=== PATIENT | male | born 1965 | race Caucasian/White ===

== ENCOUNTER 2018-08-27 17:46 | Emergency (ER) | payer MEDICARE, MEDICAID ==
[~2018-08-27] VITALS: Ht 188 cm; Wt 165.9 kg
[~2018-08-27 17:46] MED LIST: ATEN-169 PO; BUPR150T6 PO; CLOZ150T PO; MONT10TA21 PO; OLAN5TAB5 PO; OMEP-84 PO; RES15C PO; TRAZ-91 PO; [UNRECOGNIZED DRUG - REMARK]
[2018-08-27 18:47] LABS: BASOPHILS # (AUTO) 0.1 X10'3 (0-0.2); BASOPHILS % (AUTO) 1.4 % (0-1); EOSINOPHILS % (AUTO) 0.1 % (0-6); HEMOGLOBIN 16.1 g/dl (14.0-17.9); LYMPHOCYTES % (AUTO) 38.4 % (21-51); MEAN CORPUSCULAR HEMOGLOBIN 32.1 PG (27.0-31.0); MEAN CORPUSCULAR VOLUME 91.8 FL (78-98); MEAN PLATELET VOLUME 6.9 FL (7.4-10.4); MONOCYTES # (AUTO) 0.6 X10'3 (0-0.9); MONOCYTES % (AUTO) 12.1 % (2-12); NEUTROPHILS # (AUTO) 2.4 X10'3 (1.8-7.7); PLATELET COUNT 205 X10'3 (140-440); RED BLOOD COUNT 5.01 X10'6 (4.70-6.10); RED CELL DISTRIBUTION WIDTH 13.3 % (11.5-14.5); WHITE BLOOD COUNT 5.1 X10'3 (4.5-11.0)
[2018-08-27 18:55] LABS: ALANINE AMINOTRANSFERASE 27 U/L (12-78); ALBUMIN 4.2 G/DL (3.4-5.0); ALKALINE PHOSPHATASE 97 IU/L (46-116); ANION GAP 11 (8-16); ASPARTATE AMINO TRANSFERASE 22 U/L (10-37); BILIRUBIN,TOTAL 0.5 MG/DL (0.1-1.0); BLOOD UREA NITROGEN 16 MG/DL (7-18); BUN/CREATININE RATIO 16.5 (5.4-32.0); CALCIUM 9.6 MG/DL (8.5-10.1); CHLORIDE 103 MMOL/L (99-107); CREATININE 0.97 MG/DL (0.60-1.10); GLUCOSE 108 MG/DL (70-104); SODIUM 141 MMOL/L (135-145); TOTAL CARBON DIOXIDE 27.3 MMOL/L (24-32); TOTAL PROTEIN 8.4 G/DL (6.4-8.2); eGFR 81 ML/MIN
[2018-08-27 18:57] LABS: POTASSIUM 3.6 MMOL/L (3.5-5.1)
[2018-08-27 19:13] LABS: ETHANOL < 0.010 GM/DL (0.0-0.010)
[2018-08-27 20:10] LABS: CLARITY,URINE CLEAR (Clear); COLOR,URINE STRAW (Yellow); GLUCOSE, URINE NEGATIVE (Neg); KETONES,URINE NEGATIVE (Neg); LEUKOCYTE ESTERASE ,URINE NEGATIVE (Neg); NITRITES, URINE NEGATIVE (Neg); OCCULT BLOOD,URINE NEGATIVE (Neg); PROTEIN,URINE NEGATIVE (Neg); UROBILINOGEN,URINE 0.2 E.U/dL (0.2-1.0)
[2018-08-27 20:14] LABS: UA COLLECTION TYPE CLN CATCH MIDSTREAM
[2018-08-27 20:21] LABS: URINE AMPHETAMINE SCREEN NEGATIVE (Neg); URINE BARBITUATE SCREEN NEGATIVE (Neg); URINE BENZODIAZEPINES SCREEN NEGATIVE (Neg); URINE CANNABINOID SCREEN NEGATIVE (Neg); URINE COCAINE SCREEN NEGATIVE (Neg); URINE METHADONE SCREEN NEGATIVE (Neg); URINE OPIATE SCREEN NEGATIVE (Neg); URINE PHENCYCLIDINE SCREEN NEGATIVE (Neg)
[2018-08-27] MEDS ORDERED: BUPR150T14 PO (23:18)
[2018-08-27] MEDS ORDERED: POTA-82 PO (23:18)
[2018-08-27] MEDS ORDERED: HYDR-4353 PO (23:18)
[2018-08-27] MEDS ORDERED: GABA-532 PO (23:18)
[2018-08-27] MEDS ORDERED: CARV6.253 PO (23:18)
[2018-08-27] MEDS ORDERED: FURO-150 PO (23:18)
[2018-08-27] MEDS ORDERED: VENL150C2 PO (23:18)
[2018-08-27] MEDS ORDERED: CLON0.1T PO (23:18)
[2018-08-27] MEDS ORDERED: GEMF600T89 PO (23:18)
[2018-08-27] MEDS ORDERED: SUMA50TA PO (23:18)
[2018-08-27] MEDS ORDERED: traZODone 50mg tablet PO PRN (23:40)
[2018-08-27] MEDS ORDERED: SUMAtriptan 25 MG tablet PO PRN (23:40)
--- NOTE | 2018-08-27 23:53 | NUR ---
Initiated Tele Psyc consult
[2018-08-28] MEDS ORDERED: LORazepam 1 MG tablet PO ONE
--- NOTE | 2018-08-28 | NUR ---
PATIENT WAS BROUGHT IN BY HIS MOTHER, PATIENT STATES THAT HE HAS INCREASED ANGER AND WAS HAVING THOUGHTS OF CUTTING THE VEINS IN HIS ANKLES. PATIENT CURRENTLY DOES NOT WANT TO HARM HIMSELF BUT FEELS LIKE HIS LIFE IS SPINNING OUT OF CONTROL. HE LIVES ON HIS OWN AND IS DISABLED. PATIENT HAS BEEN PLEASENT AND COOPERATIVE, HE HAS BEEN PACING BETWEEN HIS ROOM AND THE SINK. PATIENT WAS EDUCATED TO PLEASE STAY IN HIS ROOM UNLESS HE NEEDS TO USE RESTROOM, PATIENT VERBALIZED UNDERSTANDING.
[2018-08-28] MEDS: cloNIDine 0.1 mg tablet PO SCH ×2 (00:17→20:37)
--- NOTE | 2018-08-28 00:42 | NUR ---
DR. FERNÁNDEZ CALLED FOR INFORMATION ON PATIENT PRIOR TO TELE PYSC.
--- NOTE | 2018-08-28 01:28 | NUR ---
TELEPSYC REPORT SHOWN TO MD FAUSTINO AWARE OF RECOMMENDATIONS. [facility] WILL FOLLOW UP WITH PATIENT TOMORROW
[2018-08-28] MEDS ORDERED: SUMATRIPTAN SUCCINATE PO PRN (02:40)
[2018-08-28] MEDS: gemfibrozil 600mg tablet PO SCH ×2 (07:36→20:37)
[2018-08-28] MEDS: OLANZapine 5mg rapidly disint. tablet PO SCH ×2 (07:37→20:37)
[2018-08-28] MEDS: montelukast 10mg tablet PO SCH (07:37)
[2018-08-28] MEDS: potassium Cl 20 mEq SR tablet PO SCH (07:37)
[2018-08-28] MEDS: pantoprazole 40mg Tablet.DR PO SCH (07:38)
[2018-08-28] MEDS: furosemide 20MG tablet PO SCH (07:38)
[2018-08-28] MEDS: venlafaxine XR 75mg capsule (Q24H) PO SCH (07:38)
[2018-08-28] MEDS: carvedilol 6.25mg tablet PO SCH ×2 (07:38→20:37)
[2018-08-28] MEDS: CLOZAPINE 25 MG oral disintegrating tablet PO SCH ×2 (07:39→20:37)
[2018-08-28] MEDS: gabapentin 300mg capsule PO SCH ×3 (07:45→20:37)
[2018-08-28] MEDS ORDERED: HYDROcodone/acetaminophen 10/325mg tab PO SCH (08:00)
[2018-08-28] MEDS ORDERED: non-formulary drug (Venlafaxine HCl (Effexor Xr) 2 CAP) PO SCH (08:00)
[2018-08-28] MEDS ORDERED: buproprion 150mg XL (24-hour) tablet PO SCH (08:00)
[2018-08-28] MEDS ORDERED: carvedilol 6.25mg tablet PO SCH (08:00)
[2018-08-28] MEDS ORDERED: non-formulary drug (Omeprazole* (Prilosec*) 20 MG) PO SCH (08:00)
[2018-08-28] MEDS ORDERED: gabapentin 300mg capsule PO SCH (08:00)
[2018-08-28] MEDS ORDERED: gemfibrozil 600mg tablet PO SCH (08:00)
[2018-08-28] MEDS ORDERED: CLOZAPINE 150 MG PO SCH (08:00)
[2018-08-28] MEDS ORDERED: OLANZapine 5mg rapidly disint. tablet PO SCH (08:00)
[2018-08-28] MEDS ORDERED: furosemide 20MG tablet PO SCH (08:00)
[2018-08-28] MEDS ORDERED: BUPROPION 150 MG PO (10:11)
[2018-08-28] MEDS: buPROPion SR 100mg tab PO SCH ×2 (10:53→20:37)
--- NOTE | 2018-08-28 18:33 | NUR ---
Report rec'd, care assumed. Patient sitting up on side of bed eating dinner. Denies needs. Will monitor.
--- NOTE | 2018-08-28 19:22 | NUR ---
Finished eating dinner. Up to BRP without assistance. Gait steady. Denies needs, will continue to monitor.
--- NOTE | 2018-08-28 20:52 | NUR ---
Took medications without issues. Denies needs, will continue to monitor.
[2018-08-28] MEDS ORDERED: montelukast 10mg tablet PO SCH (21:00)
[2018-08-28] MEDS ORDERED: TRAZODONE HCL 200 MG PO SCH (21:00)
[2018-08-28] MEDS ORDERED: cloNIDine 0.1 mg tablet PO SCH (21:00)
--- NOTE | 2018-08-28 21:58 | NUR ---
Resting in bed with eyes, appearing to sleep, will monitor.
--- NOTE | 2018-08-28 22:56 | NUR ---
In bed, eyes closed, resp even and unlabored, on C-PAP, appearing to sleep.
--- NOTE | 2018-08-28 23:57 | NUR ---
Resting in bed with eyes closed, appearing to sleep without new issues or concerns. Resp even and unlabored, continues on C-PAP. Will continue to monitor.
--- NOTE | 2018-08-29 01:19 | NUR ---
Resting in bed, continues to appear to sleep. No changes noted. No new concerns or issues noted.
--- NOTE | 2018-08-29 02:04 | NUR ---
Resting in bed, eyes closed, resp unlabored, appearing to sleep comfortably without new concerns or issues noted. Will continue to monitor.
--- NOTE | 2018-08-29 03:00 | NUR ---
Resting in bed, appearing to sleep.
--- NOTE | 2018-08-29 04:00 | NUR ---
Resting in bed, appearing to sleep.
--- NOTE | 2018-08-29 04:58 | NUR ---
Resting in bed, eyes closed, resp unlabored, appearing to sleep comfortably without new concerns or issues noted. Will continue to monitor.
[2018-08-29] MEDS: gemfibrozil 600mg tablet PO SCH ×2 (08:00→20:13)
[2018-08-29] MEDS: venlafaxine XR 75mg capsule (Q24H) PO SCH (08:27)
[2018-08-29] MEDS: buPROPion SR 100mg tab PO SCH ×2 (08:27→20:13)
[2018-08-29] MEDS: potassium Cl 20 mEq SR tablet PO SCH (08:28)
[2018-08-29] MEDS: furosemide 20MG tablet PO SCH (08:28)
[2018-08-29] MEDS: pantoprazole 40mg Tablet.DR PO SCH (08:28)
[2018-08-29] MEDS: montelukast 10mg tablet PO SCH (08:28)
[2018-08-29] MEDS: carvedilol 6.25mg tablet PO SCH ×2 (08:46→20:14)
[2018-08-29] MEDS: gabapentin 300mg capsule PO SCH ×3 (08:47→20:14)
[2018-08-29] MEDS: CLOZAPINE 25 MG oral disintegrating tablet PO SCH ×2 (08:47→20:14)
[2018-08-29] MEDS: OLANZapine 5mg rapidly disint. tablet PO SCH ×2 (08:48→20:13)
--- NOTE | 2018-08-29 08:54 | NUR ---
PT ATE BREAKFAST. MEDS PASSED. ONE MED NOT AVAILABLE. PHARMACY NOTIFIED
--- NOTE | 2018-08-29 10:27 | NUR ---
PT STATES NO SUICAL THOUGHTS OR PLAN. SAYS EXPERIENCING DEPRESSION AND ANXIETY.
--- NOTE | 2018-08-29 11:40 | NUR ---
PT IS CURRENTLY SITTING AT BEDSIDE
[2018-08-29] MEDS: HYDROcodone/acetaminophen 10/325mg tab PO PRN (14:46)
--- NOTE | 2018-08-29 15:58 | NUR ---
PT IS UP AND TOILETING
--- NOTE | 2018-08-29 16:45 | NUR ---
PT IS LAYING IN BED AND TALKING ON THE PHONE. PT VOIDS ALOT
--- NOTE | 2018-08-29 18:09 | NUR ---
Gave report to Minal PASCUAL
--- NOTE | 2018-08-29 18:57 | NUR ---
PATIENT RESTING IN BED AT THIS TIME.
[2018-08-29] MEDS: cloNIDine 0.1 mg tablet PO SCH (20:14)
--- NOTE | 2018-08-29 20:15 | NUR ---
MEDICATIONS GIVEN AT THIS TIME.
--- NOTE | 2018-08-29 22:00 | NUR ---
PATIENT RESTING IN BED WITH A HOME CIPAP ON.
--- NOTE | 2018-08-30 00:30 | NUR ---
RESTING IN BED WITH EYES CLOSED.
--- NOTE | 2018-08-30 03:00 | NUR ---
NO BEHAVIOR PROBLEMS NOTED THIS FAR.
--- NOTE | 2018-08-30 05:00 | NUR ---
VITAL SIGNS TAKEN.
--- NOTE | 2018-08-30 06:29 | NUR ---
PATIENT REPORT GIVEN TO EFRAIN PASCUAL.
--- NOTE | 2018-08-30 07:15 | NUR ---
Patient sleeping on left side, respirations even and unlabored with CPAP, no signs of distress at this time.
[2018-08-30] MEDS: gabapentin 300mg capsule PO SCH (08:32)
[2018-08-30] MEDS: pantoprazole 40mg Tablet.DR PO SCH (08:32)
[2018-08-30] MEDS: potassium Cl 20 mEq SR tablet PO SCH (08:32)
[2018-08-30] MEDS: buPROPion SR 100mg tab PO SCH (08:32)
[2018-08-30] MEDS: furosemide 20MG tablet PO SCH (08:32)
[2018-08-30] MEDS: carvedilol 6.25mg tablet PO SCH (08:32)
[2018-08-30] MEDS: montelukast 10mg tablet PO SCH (08:32)
[2018-08-30] MEDS: venlafaxine XR 75mg capsule (Q24H) PO SCH (08:33)
[2018-08-30] MEDS: OLANZapine 5mg rapidly disint. tablet PO SCH (08:33)
[2018-08-30] MEDS ORDERED: clozapine 25mg tablet PO SCH (08:50)
--- NOTE | 2018-08-30 08:53 | NUR ---
patient awake, pleasant for AM medications. pt sitting up on left side of the bed, eating breakfast. no distress noted. will continue to monitor.
[2018-08-30] MEDS: gemfibrozil 600mg tablet PO SCH (09:03)
[2018-08-30] MEDS ORDERED: clozapine 25mg tablet PO ONE (09:15)
--- NOTE | 2018-08-30 10:14 | NUR ---
Patient complaining of back pain, requesting norco. pt lying on left side in bed with respirations even and unlabored. no signs of distress
[2018-08-30] MEDS: HYDROcodone/acetaminophen 10/325mg tab PO PRN (10:21)
--- NOTE | 2018-08-30 10:24 | NUR ---
Pain medication given for patient's complaints of back pain. Will reasess pain and continue to monitor. patient resting at this time, with no signs of distress, respirations even.
--- NOTE | 2018-08-30 11:25 | NUR ---
Patient awake, resting on back, no signs of distress at this time.
--- NOTE | 2018-08-30 12:30 | NUR ---
Patient resting, no s/s of distress, pt respirations even and unlabored.
[2018-08-30] MEDS ORDERED: POTA20TA19 PO (12:50)
--- NOTE | 2018-08-30 13:21 | NUR ---
Called report to ANKUR Domínguez in Behavioral health. Patient being transported with assistance of security tech and hospital staff to behavioral health unit.
[2018-08-30 13:39] VITALS: BP 152/82
== END 2018-08-30 13:44 | disposition home or self-care (01) ==
LOC: ER 17:47
DX: F25.9 Schizoaffective disorder, unspecified (principal); I10 Essential (primary) hypertension; R45.851 Suicidal ideations; E32.9 Disease of thymus, unspecified; Z90.49 Acquired absence of other specified parts of digestive tract; Z88.8 Allergy status to other drugs, medicaments and biological substances; Z79.899 Other long term (current) drug therapy
CPT/HCPCS: 36415; 80053; 80305; 80320; 81003; 84443; 85025; 99285

== ENCOUNTER 2018-08-30 11:15 | Inpatient (IN) | payer MEDICARE, MEDICAID | END 2018-09-06 16:15 | disposition still patient (30) | LOC: ADULT MH 11:15 | DX: F25.1 Schizoaffective disorder, depressive type (principal); F41.9 Anxiety disorder, unspecified ==

== ENCOUNTER 2022-03-10 23:23 | Emergency (ER) | payer MEDICARE, MEDICAID ==
[~2022-03-10] VITALS: Ht 188 cm; Wt 127.3 kg
[~2022-03-10 23:23] MED LIST changes: -ATEN-169 PO; -BUPR150T6 PO; +BUPROPION 150 MG PO; +CARV6.253 PO; +CLON0.1T PO; +CLOZ100T13 PO; -CLOZ150T PO; +DIVA500T2 PO; +FURO-150 PO; +GABA-532 PO; +GEMF600T89 PO; +POTA-207 PO; -RES15C PO; +SUMA50TA PO; +VENL150T3 PO; -[UNRECOGNIZED DRUG - REMARK]
[2022-03-10 23:53] VITALS: BP 128/68
[2022-03-11] MEDS ORDERED: QUET50TA PO (00:04)
[2022-03-11] MEDS ORDERED: quetiapine 100mg tablet PO SCH ×2 (00:09→00:10)
[2022-03-11] MEDS ORDERED: QUEtiapine 25mg tablet PO SCH (00:10)
== END 2022-03-11 00:25 | disposition home or self-care (01) ==
LOC: ER 23:24
DX: F32.A Depression, unspecified (principal); I10 Essential (primary) hypertension; F20.9 Schizophrenia, unspecified; Z90.49 Acquired absence of other specified parts of digestive tract; Z60.2 Problems related to living alone; Z98.890 Other specified postprocedural states; Z88.8 Allergy status to other drugs, medicaments and biological substances; Z79.899 Other long term (current) drug therapy
CPT/HCPCS: 99283

== ENCOUNTER 2023-02-25 18:50 | Emergency (ER) | payer MEDICARE, MEDICAID ==
[~2023-02-25] VITALS: Ht 188 cm; Wt 134.1 kg
[~2023-02-25 18:50] MED LIST changes: +IBUP-1985 PO; +MONT-48 PO; -MONT10TA21 PO; +QUET50TA PO
[2023-02-25 20:15] LABS: BASOPHILS % (AUTO) 0.6 % (0-1); EOSINOPHILS % (AUTO) 0 % (0-6); HEMATOCRIT 44.9 % (42.0-52.0); HEMOGLOBIN 15.6 g/dl (14.0-17.9); LYMPHOCYTES # (AUTO) 1.1 X10'3 (1.1-4.8); LYMPHOCYTES % (AUTO) 20.7 % (21-51); MEAN CORPUSCULAR HEMOGLOBIN 32.3 PG (27.0-31.0); MEAN CORPUSCULAR HGB CONC 34.7 g/dL (33.0-36.5); MEAN CORPUSCULAR VOLUME 93.1 FL (78-98); MEAN PLATELET VOLUME 6.5 FL (7.4-10.4); MONOCYTES # (AUTO) 0.7 X10'3 (0-0.9); NEUTROPHILS # (AUTO) 3.4 X10'3 (1.8-7.7); NEUTROPHILS % (AUTO) 65.7 % (42-75); PLATELET COUNT 186 X10'3 (140-440); RED BLOOD COUNT 4.83 X10'6 (4.70-6.10); RED CELL DISTRIBUTION WIDTH 13.9 % (11.5-14.5); WHITE BLOOD COUNT 5.1 X10'3 (4.5-11.0)
[2023-02-25 20:25] LABS: ALANINE AMINOTRANSFERASE 22 U/L (12-78); ALBUMIN/GLOBULIN RATIO 1.1 (1.1-1.5); ALKALINE PHOSPHATASE 86 IU/L (46-116); ANION GAP 8 (8-16); ASPARTATE AMINO TRANSFERASE 21 U/L (10-37); BILIRUBIN,TOTAL 0.5 MG/DL (0.1-1.0); BLOOD UREA NITROGEN 6 MG/DL (7-18); BUN/CREATININE RATIO 7.5 (10.0-20.0); CALCIUM 9.5 MG/DL (8.5-10.1); CHLORIDE 102 MMOL/L (99-107); GLUCOSE 109 MG/DL (70-104); POTASSIUM 3.9 MMOL/L (3.5-5.1); SODIUM 138 MMOL/L (135-145); TOTAL CARBON DIOXIDE 28.1 MMOL/L (24-32); TOTAL PROTEIN 7.6 G/DL (6.4-8.2); eCRCL 118 ML/MIN; eGFR > 90 ML/MIN
[2023-02-25 20:37] LABS: ETHANOL < 10 MG/DL (<10)
[2023-02-25] MEDS ORDERED: LIDOcaine 1% W/epiNEPHrine 1:100,000 20ml vial IJ ONE (20:45)
[2023-02-25 21:07] LABS: URINE AMPHETAMINE SCREEN NEGATIVE (Neg); URINE BARBITUATE SCREEN NEGATIVE (Neg); URINE BENZODIAZEPINES SCREEN NEGATIVE (Neg); URINE CANNABINOID SCREEN NEGATIVE (Neg); URINE COCAINE SCREEN NEGATIVE (Neg); URINE METHADONE SCREEN NEGATIVE (Neg); URINE OPIATE SCREEN NEGATIVE (Neg); URINE PHENCYCLIDINE SCREEN NEGATIVE (Neg)
[2023-02-25] MEDS ORDERED: OLAN10TA3 PO (21:12)
[2023-02-25] MEDS ORDERED: TRAZ300T2 PO (21:12)
[2023-02-25] MEDS ORDERED: LURA120T2 (21:14)
[2023-02-25] MEDS ORDERED: METF-900 PO (21:54)
--- NOTE | 2023-02-25 21:54 | NUR ---
DRESSING APPLIED TO SUTURE REPAIR
[2023-02-25] MEDS ORDERED: montelukast 10mg tablet PO SCH (22:51)
[2023-02-25] MEDS ORDERED: traZODone 150mg tablet PO SCH (22:52)
[2023-02-25] MEDS ORDERED: olanzapine 10mg tablet PO SCH (22:52)
[2023-02-25] MEDS ORDERED: metFORMIN 500mg tablet PO SCH (22:53)
[2023-02-26] MEDS ORDERED: non-formulary drug (Ibuprofen 1 TAB) PO SCH
--- NOTE | 2023-02-26 00:19 | NUR ---
Patient on a 1799 for suicidal ideation. Problems with family. 2 sutures to left hand. Patient just got his Trazodone to sleep. No distress observed. Continue to monitor.
--- NOTE | 2023-02-26 00:27 | NUR ---
report given to overflow nurse. moved pt to room 22
--- NOTE | 2023-02-26 01:27 | NUR ---
Patient sleeping on his right side. Nonlabored respirations. No distress observed. Continue to monitor.
--- NOTE | 2023-02-26 03:58 | NUR ---
Patient sleeping supine. No distress observed. Continue to monitor.
--- NOTE | 2023-02-26 05:08 | NUR ---
Patient ambulatory to BR, steady gait. No distress observed. Continue to monitor.
[2023-02-26 05:55] VITALS: BP 113/76; PULSE 61; TEMP 97.6; O2SAT 99
--- NOTE | 2023-02-26 06:06 | NUR ---
RN faxed packet to [facility].
--- NOTE | 2023-02-26 07:13 | NUR ---
Pt awake, walked to the bathroom.
[2023-02-26] MEDS ORDERED: lurasidone 60mg tablet PO SCH (07:30)
[2023-02-26] MEDS ORDERED: pantoprazole 40mg Tablet.DR PO SCH (07:30)
[2023-02-26] MEDS ORDERED: lurasidone 20mg tablet PO SCH (07:30)
--- NOTE | 2023-02-26 07:36 | NUR ---
Pt stating he is hungry. Pt did not have a diet order. Obtained order and faxed dietary.
[2023-02-26 07:46] VITALS: RESP 16
[2023-02-26] MEDS ORDERED: venlafaxine XR 75mg capsule (Q24H) PO SCH (08:00)
[2023-02-26] MEDS ORDERED: potassium Cl 20 mEq SR tablet PO SCH (08:00)
[2023-02-26] MEDS ORDERED: furosemide 20MG tablet PO SCH (08:00)
--- NOTE | 2023-02-26 08:28 | NUR ---
Pt is eating his breakfast. Pt is hungry. Pt reports he has not eaten anything since lunch yesterday. Pt reports depression with SI. Laceration w/ sutures left wrist, dressing C/D/I. Pt reports that he plans on trying to cut himself again when he leaves here. Pt denies AH/VH. Pt reports that he does not have hallucinations when he is taking his antipsychotic medication. Pt reports a suicide attempt 30 years ago.
--- NOTE | 2023-02-26 08:45 | NUR ---
Pt is being evaluated by [facility].
--- NOTE | 2023-02-26 09:23 | NUR ---
Per GAYE Kitchen, pt is being discharged home.
--- NOTE | 2023-02-26 09:57 | NUR ---
Pt discharged home. He called his sister who arranged for an [employer].
--- NOTE | 2023-02-26 10:09 | NUR ---
PT WAS BEING D/C, WALKED OUT WHEN I CAME BACK TO BREAK NURSE BING. GARRETT CORNELIUS WAS WALKING PT OUT TO LOBBY.
== END 2023-02-26 09:57 | disposition home or self-care (01) ==
LOC: ER 18:50
DX: S61.512A Laceration without foreign body of left wrist, initial encounter (principal); Z20.822 Contact with and (suspected) exposure to COVID-19; X78.8XXA Intentional self-harm by other sharp object, initial encounter; Y93.89 Activity, other specified; Y92.89 Other specified places as the place of occurrence of the external cause; Y99.8 Other external cause status
CPT/HCPCS: 12002; 36415; 80053; 80305; 80320; 85025; 87811; 99285; J3490

== ENCOUNTER 2023-10-12 08:42 | Emergency (ER) | payer MEDICARE, MEDICAID ==
[~2023-10-12] VITALS: Ht 188 cm; Wt 113.2 kg
[~2023-10-12 08:42] MED LIST changes: -BUPROPION 150 MG PO; -CARV6.253 PO; -CLON0.1T PO; -CLOZ100T13 PO; -DIVA500T2 PO; -GABA-532 PO; -GEMF600T89 PO; -IBUP-1985 PO; +LURA120T2; +METF-900 PO; +OLAN10TA3 PO; -OLAN5TAB5 PO; -QUET50TA PO; -SUMA50TA PO; -TRAZ-91 PO; +TRAZ300T2 PO
[2023-10-12 08:56] VITALS: TEMP 98.1
[2023-10-12] MEDS ORDERED: IBUP-1985 PO (10:22)
[2023-10-12] MEDS ORDERED: FLUT16SP2 BOTHNARES (10:22)
[2023-10-12] MEDS ORDERED: PSEU120T56 PO (10:22)
[2023-10-12 10:26] VITALS: BP 109/76; PULSE 92; RESP 16; O2SAT 97
== END 2023-10-12 10:29 | disposition home or self-care (01) ==
LOC: ER 08:43
DX: J32.9 Chronic sinusitis, unspecified (principal); I10 Essential (primary) hypertension; Z88.8 Allergy status to other drugs, medicaments and biological substances; Z79.899 Other long term (current) drug therapy; Z90.49 Acquired absence of other specified parts of digestive tract
CPT/HCPCS: 99282

== ENCOUNTER 2023-11-28 17:14 | Emergency (ER) | payer MEDICARE, MEDICAID ==
[~2023-11-28] VITALS: Ht 188 cm; Wt 111.0 kg
[~2023-11-28 17:14] MED LIST changes: +ALBU2.5V7 NEB; -LURA120T2; +LURA40TA4 PO; +LURA60TA PO; -OLAN10TA3 PO; +OLAN10TA73 PO; +TRAZ150T78 PO; -TRAZ300T2 PO
[2023-11-28] MEDS: haloperidol lactate 5mg/ml inj IM ONE (18:00)
[2023-11-28] MEDS: diphenhydrAMINE 50 mg/ml inj IM ONE (18:00)
[2023-11-28] MEDS: diazepam inj 5 MG/ML inj. IM ONE (18:00)
[2023-11-28 18:47] LABS: BASOPHILS % (AUTO) 0.9 % (0-1); EOSINOPHILS % (AUTO) 0.1 % (0-6); HEMATOCRIT 40.3 % (42.0-52.0); HEMOGLOBIN 13.9 g/dl (14.0-17.9); LYMPHOCYTES # (AUTO) 1.7 X10'3 (1.1-4.8); LYMPHOCYTES % (AUTO) 37.6 % (21-51); MEAN CORPUSCULAR HEMOGLOBIN 31.8 PG (27.0-31.0); MEAN CORPUSCULAR HGB CONC 34.6 g/dL (33.0-36.5); MEAN CORPUSCULAR VOLUME 92.1 FL (78-98); MEAN PLATELET VOLUME 6.9 FL (7.4-10.4); MONOCYTES # (AUTO) 0.5 X10'3 (0-0.9); MONOCYTES % (AUTO) 10.6 % (2-12); NEUTROPHILS # (AUTO) 2.3 X10'3 (1.8-7.7); NEUTROPHILS % (AUTO) 50.8 % (42-75); PLATELET COUNT 172 X10'3 (140-440); RED BLOOD COUNT 4.38 X10'6 (4.70-6.10); WHITE BLOOD COUNT 4.6 X10'3 (4.5-11.0)
[2023-11-28 18:57] LABS: ALBUMIN 3.8 G/DL (3.4-5.0); ANION GAP 6 (8-16); BLOOD UREA NITROGEN 5 MG/DL (7-18); BUN/CREATININE RATIO 6.9 (10.0-20.0); CALCIUM 8.9 MG/DL (8.5-10.1); CHLORIDE 103 MMOL/L (99-107); CREATININE 0.72 MG/DL (0.60-1.10); ETHANOL < 10 MG/DL (<10); GLUCOSE 82 MG/DL (70-104); POTASSIUM 3.4 MMOL/L (3.5-5.1); SODIUM 138 MMOL/L (135-145); TOTAL CARBON DIOXIDE 28.9 MMOL/L (24-32); eCRCL 130 ML/MIN; eGFR > 90 ML/MIN
[2023-11-28 19:05] LABS: URINE AMPHETAMINE SCREEN NEGATIVE (Neg); URINE BARBITUATE SCREEN NEGATIVE (Neg); URINE BENZODIAZEPINES SCREEN NEGATIVE (Neg); URINE CANNABINOID SCREEN NEGATIVE (Neg); URINE COCAINE SCREEN NEGATIVE (Neg); URINE METHADONE SCREEN NEGATIVE (Neg); URINE PHENCYCLIDINE SCREEN NEGATIVE (Neg)
[2023-11-28] MEDS ORDERED: VENL100T4 PO (21:18)
[2023-11-28] MEDS ORDERED: ALBU2.5V10 NEB (21:43)
[2023-11-28] MEDS ORDERED: LURA80TA2 PO (22:11)
[2023-11-28] MEDS ORDERED: TRAZ-256 PO (22:18)
[2023-11-28] MEDS ORDERED: OLAN5TAB5 PO (22:20)
[2023-11-28] MEDS ORDERED: MONT-40 PO (23:04)
[2023-11-29] MEDS: traZODone 150mg tablet PO ONE (00:02)
[2023-11-29] MEDS: traZODone 50mg tablet PO ONE (00:03)
[2023-11-29] MEDS ORDERED: albuterol 2.5 MG/3 ML nebule NEB PRN (01:15)
[2023-11-29] MEDS ORDERED: VENL150T3 PO (01:34)
[2023-11-29] MEDS ORDERED: TRAZ150T78 PO (01:36)
[2023-11-29] MEDS: LORazepam 1 MG tablet PO ONE (04:14)
[2023-11-29] MEDS ORDERED: VENLAFAXINE HCL PO SCH (08:00)
[2023-11-29] MEDS: potassium Cl 20 mEq SR tablet PO SCH (09:51)
[2023-11-29] MEDS: pantoprazole 40mg Tablet.DR PO SCH (09:51)
[2023-11-29] MEDS: venlafaxine XR 75mg capsule (Q24H) PO SCH (09:52)
[2023-11-29] MEDS: furosemide 20MG tablet PO SCH (10:13)
[2023-11-29] MEDS: metFORMIN 500mg tablet PO SCH (10:15)
[2023-11-29] MEDS: quetiapine 100mg tablet PO ONE (12:10)
[2023-11-29 13:29] VITALS: BP 133/67; PULSE 68; RESP 12; TEMP 98.1; O2SAT 97
[2023-11-29] MEDS ORDERED: lurasidone 60mg tablet PO SCH (17:00)
[2023-11-29] MEDS ORDERED: lurasidone 20mg tablet PO SCH (17:00)
[2023-11-29] MEDS ORDERED: traZODone 150mg tablet PO SCH (21:00)
[2023-11-29] MEDS ORDERED: TRAZODONE HCL PO SCH (21:00)
[2023-11-29] MEDS ORDERED: montelukast 10mg tablet PO SCH (21:00)
[2023-11-29] MEDS ORDERED: OLANZapine 5mg rapidly disint. tablet PO SCH (21:00)
== END 2023-11-29 13:32 | disposition home or self-care (01) ==
LOC: ER 17:15
DX: R45.850 Homicidal ideations (principal); Z20.822 Contact with and (suspected) exposure to COVID-19; I10 Essential (primary) hypertension; K21.9 Gastro-esophageal reflux disease without esophagitis; E11.9 Type 2 diabetes mellitus without complications; G89.29 Other chronic pain; M54.9 Dorsalgia, unspecified; F32.A Depression, unspecified; F20.9 Schizophrenia, unspecified; Z90.49 Acquired absence of other specified parts of digestive tract; Z59.00 Homelessness unspecified; Z88.8 Allergy status to other drugs, medicaments and biological substances
CPT/HCPCS: 36415; 80048; 80305; 80320; 85025; 87811; 99284; 99285